=== PATIENT | male | born 1985 ===

== ENCOUNTER → 2022-08-08 | Emergency (ER) | payer SELFPAY ==
[~2022-08-08] VITALS: Ht 182.9 cm; Wt 85.0 kg
[2022-08-08 10:12] VITALS: BP 148/92
== END | disposition left against medical advice (07) ==
LOC: EDBD 10:11 → ER 10:11
DX: R73.9 Hyperglycemia, unspecified (principal); Z53.21 Procedure and treatment not carried out due to patient leaving prior to being seen by health care provider